=== PATIENT | female | born 1965 | race Caucasian/White ===

== ENCOUNTER 2018-10-14 09:57 | Emergency (ER) | payer OTHER ==
[2018-10-14 11:51] LABS: Urine Bacteria <20 /HPF (<20); Urine Culture Reflex Order NOT NEEDED
--- NOTE | 2018-10-14 12:30 | RAD REPORT ---
EXAM DESCRIPTION: US - Transvaginal Study Probe - 10/14/2018 11:51 am CLINICAL HISTORY: PAIN Pelvic pain. COMPARISON: No comparisons FINDINGS: The uterus is normal in size, shape and echotexture. Small posterior intramural fibroid me asuring 6 x 5 mm noted. The uterus measures 4.5 x 3.4 x 2.6 cm. The endometrial stripe measures 2 mm, normal. Neither ovary was visualized. No significant pelvic ascites. IMPRESSION: No acute or worrisome abnormality detected.
--- NOTE | 2018-10-14 12:35 | ER ---
Nurse's Notes [facility] Name: Bernie Garcia Age: 53 yrs Sex: Female : 1965 Arrival Date: 10/14/2018 Time: 10:01 Bed 25 Private MD: Diagnosis: Dysuria Presentation: 10/14 10:16 Presenting complaint: Patient states: unable to empty bladder completely, bladder sv pressure, is on abx for UTI since a week ago. Transition of care: patient was not received from another setting of care. Onset of symptoms was October 07, 2018. Care prior to arrival: None. 10:16 Method Of Arrival: Ambulatory sv 10:16 Acuity: TRUNG 3 sv 12:51 Risk Assessment: Do you want to hurt yourself or someone else? Patient reports no aj1 desire to harm self or others. Initial Sepsis Screen: Does the patient meet any 2 criteria? No. Patient's initial sepsis screen is negative. Does the patient have a suspected source of infection? No. Patient's initial sepsis screen is negative. Triage Assessment: 10:19 General: Appears in no apparent distress. comfortable, Behavior is calm, cooperative, sv appropriate for age. Pain: Complains of pain in groin Pain currently is 4 out of 10 on a pain scale. Neuro: Level of Consciousness is awake, alert, obeys commands, Oriented to person, place, time, situation, Moves all extremities. Full function Gait is steady. Respiratory: Respiratory effort is even, unlabored, Respiratory pattern is regular, symmetrical. : Reports pain urgency. Historical: - Allergies: 10:18 No Known Allergies; sv - Home Meds: 10:18 None [Active]; sv - PMHx: 10:18 None; sv - PSHx: 10:18 None; sv - Immunization history:: Flu vaccine is not up to date. - Social history:: Smoking status: Patient uses tobacco products, smokes one pack cigarettes per day. - Ebola Screening: : No symptoms or risks identified at this time. Screenin:56 Abuse screen: Denies threats or abuse. Denies injuries from another. Nutritional aj1 screening: No deficits noted. Tuberculosis screening: No symptoms or risk factors identified. 12:51 Fall Risk None identified. aj1 Assessment: 10:56 General: Appears in no apparent distress. uncomfortable, Behavior is calm, cooperative, aj1 appropriate for age. Pain: Complains of pain in suprapubic area Pain does not radiate. Pain currently is 4 out of 10 on a pain scale. Quality of pain is described as burning. Neuro: Level of Consciousness is awake, alert, obeys commands. Cardiovascular: Patient's skin is warm and dry. Respiratory: Airway is patent Respiratory effort is even, unlabored, Respiratory pattern is regular, symmetrical. GI: No signs and/or symptoms were reported involving the gastrointestinal system. : Reports burning with urination, urgency, Pressure in the suprapubic area. EENT: No signs and/or symptoms were reported regarding the EENT system. Derm: No signs and/or symptoms reported regarding the dermatologic system. Skin is pink, warm \T\ dry. normal. Musculoskeletal: No signs and/or symptoms reported regarding the musculoskeletal system. Circulation, motion, and sensation intact. 10:58 Reassessment: Bladder scan done, 0mL showing in the bladder. aj1 11:55 Reassessment: Patient appears in no apparent distress at this time. No changes from aj1 previously documented assessment. Patient and/or family updated on plan of care and expected duration. Pain level reassessed. Patient is alert, oriented x 3, equal unlabored respirations, skin warm/dry/pink. 12:51 Reassessment: Patient appears in no apparent distress at this time. No changes from aj1 previously documented assessment. Patient and/or family updated on plan of care and expected duration. Pain level reassessed. Patient is alert, oriented x 3, equal unlabored respirations, skin warm/dry/pink. Vital Signs: 10:18 BP 137 / 90; Pulse 76; Resp 16; Temp 98.4; Pulse Ox 97% ; Weight 54.43 kg; Height 5 ft. sv 2 in. (157.48 cm); Pain 4/10; 10:18 Body Mass Index 21.95 (54.43 kg, 157.48 cm) sv ED Course: 10:01 Patient arrived in ED. rg4 10:18 Triage completed. sv 10:19 Arm band placed on. sv 10:44 Irasema Dubose RN is Primary Nurse. aj1 10:46 Devan De MD is Attending Physician. gs 10:56 Patient has correct armband on for positive identification. Bed in low position. Call aj1 light in reach. Side rails up X 1. 10:56 No provider procedures requiring assistance completed. aj1 11:52 Transvaginal Study Probe In Process Unspecified. EDMS 11:53 Ultrasound completed. Patient tolerated well. aa4 12:33 Luke Giron MD is Referral Physician. gs 12:52 Patient did not have IV access during this emergency room visit. aj1 Administered Medications: No medications were administered Outcome: 12:34 Discharge ordered by MD. gs 12:52 Discharged to home ambulatory. aj1 12:52 Condition: good 12:52 Discharge instructions given to patient, family, Instructed on discharge instructions, follow up and referral plans. 12:52 Patient left the ED. aj1 Signatures: Dispatcher [employer] EDIrasema Michael RN RN aj1 Celsa Agrawal RN RN Jasmine Cabello aa4 Shy Rasmussen 4 Devan De MD MD Corrections: (The following items were deleted from the chart) 10:20 10:18 Pulse 76bpm; Resp 16bpm; Pulse Ox 97%; Temp 98.4F; 54.43 kg; Height 5 ft. 2 in.; sv BMI: 21.9; Pain 4/10; sv
--- NOTE | 2018-10-14 12:35 | EDPHYS ---
Physician Documentation [facility] Name: Bernie Garcia Age: 53 yrs Sex: Female : 1965 Arrival Date: 10/14/2018 Time: 10:01 Bed 25 Private MD: ED Physician Devan De HPI: 10/14 12:30 This 53 yrs old Female presents to ER via Ambulatory with complaints of Pain gs With Urination. 12:30 The patient presents with urinary symptoms, dysuria, frequency, urgency. Onset: The gs symptoms/episode began/occurred 4 week(s) ago. Modifying factors: The symptoms are alleviated by nothing, the symptoms are aggravated by urinating. Associated signs and symptoms: Pertinent positives: urinary frequency, Pertinent negatives: cramping, fever, hematuria. Severity of symptoms: At their worst the symptoms were moderate, in the emergency department the symptoms are unchanged. The patient has not experienced similar symptoms in the past. The patient has been recently seen by a physician: the patient's primary care provider, rx abx. Historical: - Allergies: 10:18 No Known Allergies; sv - Home Meds: 10:18 None [Active]; sv - PMHx: 10:18 None; sv - PSHx: 10:18 None; sv - Immunization history:: Flu vaccine is not up to date. - Social history:: Smoking status: Patient uses tobacco products, smokes one pack cigarettes per day. - Ebola Screening: : No symptoms or risks identified at this time. ROS: 12:30 All other systems are negative. gs Exam: 12:30 Head/Face: Normocephalic, atraumatic. Eyes: Pupils equal round and reactive to light, gs extra-ocular motions intact. Lids and lashes normal. Conjunctiva and sclera are non-icteric and not injected. Cornea within normal limits. Periorbital areas with no swelling, redness, or edema. ENT: Nares patent. No nasal discharge, no septal abnormalities noted. Tympanic membranes are normal and external auditory canals are clear. Oropharynx with no redness, swelling, or masses, exudates, or evidence of obstruction, uvula midline. Mucous membranes moist. Neck: Trachea midline, no thyromegaly or masses palpated, and no cervical lymphadenopathy. Supple, full range of motion without nuchal rigidity, or vertebral point tenderness. No Meningismus. Chest/axilla: Normal chest wall appearance and motion. Nontender with no deformity. No lesions are appreciated. Cardiovascular: Regular rate and rhythm with a normal S1 and S2. No gallops, murmurs, or rubs. Normal PMI, no JVD. No pulse deficits. Respiratory: Lungs have equal breath sounds bilaterally, clear to auscultation and percussion. No rales, rhonchi or wheezes noted. No increased work of breathing, no retractions or nasal flaring. Back: No spinal tenderness. No costovertebral tenderness. Full range of motion. Skin: Warm, dry with normal turgor. Normal color with no rashes, no lesions, and no evidence of cellulitis. MS/ Extremity: Pulses equal, no cyanosis. Neurovascular intact. Full, normal range of motion. Neuro: Awake and alert, GCS 15, oriented to person, place, time, and situation. Cranial nerves II-XII grossly intact. Motor strength 5/5 in all extremities. Sensory grossly intact. Cerebellar exam normal. Normal gait. 12:30 Constitutional: The patient appears alert, awake. 12:30 Abdomen/GI: Palpation: moderate abdominal tenderness, in the suprapubic area, rebound tenderness, is not appreciated. Vital Signs: 10:18 BP 137 / 90; Pulse 76; Resp 16; Temp 98.4; Pulse Ox 97% ; Weight 54.43 kg; Height 5 ft. sv 2 in. (157.48 cm); Pain 4/10; 10:18 Body Mass Index 21.95 (54.43 kg, 157.48 cm) sv MDM: 11:19 Patient medically screened. gs 12:30 Differential diagnosis: nonspecific abdominal pain, urinary tract infection, bladder gs dysfunction. Data reviewed: vital signs, nurses notes. Physician consultation: Luke Giron MD and will see patient in office, in 2-3 days. 12:35 Counseling: I had a detailed discussion with the patient and/or guardian regarding: the gs presence of at least one elevated blood pressure reading (>120/80) during this emergency department visit. Special discussion: I have referred the patient to see his PCP for further evaluation of high blood pressure. 10/14 11:06 Order name: Urine Dipstick--Ancillary (enter results) bd 10/14 11:06 Order name: Urine --Ancillary (enter results) bd 10/14 11:24 Order name: Urine Microscopic Only; Complete Time: 12:34 10/14 11:24 Order name: Urine Culture 10/14 11:52 Order name: Transvaginal Study Probe; Complete Time: 12:34 [facility] 10/14 10:52 Order name: Urine Dipstick-Ancillary (obtain specimen); Complete Time: 10:52 sv Administered Medications: No medications were administered Disposition: 10/14/18 12:34 Discharged to Home. Impression: Dysuria. - Condition is Stable. - Discharge Instructions: Dysuria, Urodynamic Testing, Managing Your Hypertension. - Medication Reconciliation Form, Thank You Letter, Antibiotic Education, Prescription Opioid Use form. - Follow up: Luke Giron MD; When: 1 - 2 days; Reason: Re-evaluation by your physician. Signatures: Dispatcher [employer] [facility] Irasema Dubose RN RN aj1 Celsa Agrawal RN RN sv Devan De MD MD Corrections: (The following items were deleted from the chart) 11:52 11:20 Pelvis Complete+US.RAD.BRZ ordered. [facility] 12:52 12:34 10/14/2018 12:34 Discharged to Home. Impression: Dysuria. Condition is Stable. aj1 Forms are Medication Reconciliation Form, Thank You Letter, Antibiotic Education, Prescription Opioid Use. Follow up: Luke Giron; When: 1 - 2 days; Reason: Re-evaluation by your physician. gs
[2018-10-14 18:35] LABS: Urine Blood 1+ (NEG); Urine Glucose NEGATIVE (NEG); Urine Protein NEGATIVE (NEG); Urine Specific Gravity 1.015 (1.005-1.030); Urine pH 5.5 (5.0-7.0)
== END 2018-10-14 12:52 | disposition home or self-care (01) ==
LOC: ER 09:57
DX: R30.0 Dysuria (principal); F17.210 Nicotine dependence, cigarettes, uncomplicated
CPT/HCPCS: 76830; 81003; 81015; 81025; 87086; 87088; 99283

== ENCOUNTER 2018-10-30 01:12 | Emergency (ER) | payer OTHER ==
[2018-10-30 02:06] LABS: Absolute Monocytes 0.5 K/uL (0.1-1.3); Absolute Neutrophil 2.6 K/uL (1.8-8.0); Basophils % 1.4 % (0-1.3); Eosinophils % 4.7 % (0-4.4); Hematocrit 42.1 % (36.0-45.0); Lymphocytes % 36.6 % (15.3-44.8); MCH 33.2 pg (27.0-35.0); MCV 96.4 fL (80-100); MPV 9.9 fL (7.6-11.3); Monocytes % 9.5 % (3.3-12.3); RBC Red Blood Cell Count 4.37 M/uL (3.86-4.86)
[2018-10-30] MEDS ORDERED: DIAZEPAM 10 MG/2 ML INJ SYRINGE ONE (02:06)
[2018-10-30] MEDS ORDERED: NA CHLORIDE 0.9% 1,000 ML ONE (02:06)
[2018-10-30 02:29] LABS: Barbiturates NEGATIVE (NEGATIVE); Benzodiazepines POSITIVE (NEGATIVE); Cocaine NEGATIVE (NEGATIVE); METHAMPHETAM NEGATIVE (NEGATIVE); Methadone NEGATIVE (NEGATIVE); Opiates NEGATIVE (NEGATIVE); Phencyclidine NEGATIVE (NEGATIVE); THC Cannibis NEGATIVE (NEGATIVE)
[2018-10-30 02:29] LABS: ALT/SGPT 17 U/L (12-78); AST/SGOT 12 U/L (15-37); Albumin 3.4 g/dL (3.4-5.0); Alkaline Phosphatase 96 U/L (45-117); BUN Blood Urea Nitrogen 12 mg/dL (7-18); Bicarbonate 26 mmol/L (21-32); Bilirubin Direct < 0.1 mg/dL (0-0.2); Bilirubin Total 0.1 mg/dL (0.2-1.0); Glucose Level 105 mg/dL (74-106); Potassium 4.1 mmol/L (3.5-5.1); Protein, Total 6.6 g/dL (6.4-8.2); Sodium Level 145 mmol/L (136-145)
[2018-10-30] MEDS ORDERED: ACETAMINOPHEN 500 MG TAB ONE (02:46)
[2018-10-30 02:53] LABS: Urine Blood 1+ (NEG); Urine Glucose NEGATIVE (NEG); Urine Protein 2+ (NEG); Urine Specific Gravity >1.030 (1.005-1.030); Urine pH 5.5 (5.0-7.0)
[2018-10-30 02:59] LABS: Urine Bacteria <20 /HPF (<20); Urine Culture Reflex Order NOT NEEDED; Urine RBC <5 /HPF (NONE SEEN)
--- NOTE | 2018-10-30 03:27 | EDPHYS ---
Physician Documentation [facility] Name: Bernie Garcia Age: 53 yrs Sex: Female : 1965 Arrival Date: 10/30/2018 Time: 01:13 Bed 4 Private MD: ED Physician Claudio Price HPI: 10/30 02:28 This 53 yrs old Female presents to ER via EMS with complaints of seizure. wa 02:28 The patient presents after having a single isolated seizure, that lasted 3 minute(s), wa the episode(s) was witnessed, by a spouse. Character of seizure(s): Loss of consciousness: the patient experienced loss of consciousness, Motor activity: generalized, Incontinence: none, Apnea: the patient did not experience apnea, Circulation: the patient did not experience evidence of pulse disturbance. Seizure onset: just prior to arrival. Context: the seizure(s) was witnessed, by family, occurred at home, occurred while the patient was at rest, Contributing factors: takes 10 mg of valium twice a day. states run out of her medication 5 days ago and forgot to refill. h/o SZ d/o since childhood. has not seen a neurologist in several years. valium is prescribed by her PCP. 02:32 Seizure Hx: Last seizure: The patient's last seizure was approximately 3 month(s) ago. wa Associated injury: Other: L hip pain. EMS care: none. Current symptoms: L hip pain. generalized body soreness. The patient has not experienced similar symptoms in the past. The patient has not recently seen a physician. 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 - Social history:: Smoking status: Patient uses tobacco products, smokes one pack cigarettes per day. Patient uses alcohol, occasionally. Patient/guardian denies using street drugs. - Ebola Screening: : No symptoms or risks identified at this time. ROS: 02:33 Constitutional: Negative for fever, chills, and weight loss, Eyes: Negative for injury, wa pain, redness, and discharge, ENT: Negative for injury, pain, and discharge, Neck: Negative for injury, pain, and swelling, Cardiovascular: Negative for chest pain, palpitations, and edema, Respiratory: Negative for shortness of breath, cough, wheezing, and pleuritic chest pain, Abdomen/GI: Negative for abdominal pain, nausea, vomiting, diarrhea, and constipation, Back: Negative for injury and pain, : Negative for injury, bleeding, discharge, and swelling, Skin: Negative for injury, rash, and discoloration, Neuro: Negative for headache, weakness, numbness, tingling, and seizure, Psych: Negative for depression, anxiety, suicide ideation, homicidal ideation, and hallucinations. 02:33 MS/extremity: Positive for pain, tenderness, of the L hip. 02:33 All other systems are negative. Exam: 02:34 Constitutional: This is a well developed, well nourished patient who is awake, alert, wa and in no acute distress. Head/Face: Normocephalic, atraumatic. Eyes: Pupils equal round and reactive to light, extra-ocular motions intact. Lids and lashes normal. Conjunctiva and sclera are non-icteric and not injected. Cornea within normal limits. Periorbital areas with no swelling, redness, or edema. ENT: Nares patent. No nasal discharge, no septal abnormalities noted. Tympanic membranes are normal and external auditory canals are clear. Oropharynx with no redness, swelling, or masses, exudates, or evidence of obstruction, uvula midline. Mucous membranes moist. Neck: Trachea midline, no thyromegaly or masses palpated, and no cervical lymphadenopathy. Supple, full range of motion without nuchal rigidity, or vertebral point tenderness. No Meningismus. Chest/axilla: Normal chest wall appearance and motion. Nontender with no deformity. No lesions are appreciated. Cardiovascular: Regular rate and rhythm with a normal S1 and S2. No gallops, murmurs, or rubs. Normal PMI, no JVD. No pulse deficits. Respiratory: Lungs have equal breath sounds bilaterally, clear to auscultation and percussion. No rales, rhonchi or wheezes noted. No increased work of breathing, no retractions or nasal flaring. Abdomen/GI: Soft, non-tender, with normal bowel sounds. No distension or tympany. No guarding or rebound. No evidence of tenderness throughout. Back: No spinal tenderness. No costovertebral tenderness. Full range of motion. Skin: Warm, dry with normal turgor. Normal color with no rashes, no lesions, and no evidence of cellulitis. Neuro: Awake and alert, GCS 15, oriented to person, place, time, and situation. Cranial nerves II-XII grossly intact. Motor strength 5/5 in all extremities. Sensory grossly intact. Cerebellar exam normal. Normal gait. Psych: Awake, alert, with orientation to person, place and time. Behavior, mood, and affect are within normal limits. 02:34 Musculoskeletal/extremity: Extremities: grossly normal except: noted in the left hip: pain, tenderness. Vital Signs: 01:25 BP 134 / 79; Pulse 108; Resp 28 S; Temp 98.2(TE); Pulse Ox 97% on R/A; Weight 54.43 kg bb (R); Height 5 ft. 2 in. (157.48 cm) (R); Pain 7/10; 02:25 BP 124 / 78; Pulse 93; Resp 14 S; Pulse Ox 96% on R/A; bb 03:27 BP 127 / 78; Pulse 90; Resp 16; Temp 98.8(O); Pulse Ox 97% on R/A; bb 01:25 Body Mass Index 21.95 (54.43 kg, 157.48 cm) MDM: 01:24 Patient medically screened. md 02:35 Differential diagnosis: benzo w/drawal sz? will work up and reassess. . Data reviewed: md vital signs, nurses notes. 03:15 Test interpretation: by ED physician or midlevel provider: labs noted within nml md limits. ED course: valium given in in ED via IV. pt on 10 mg BID valium. will script for a bridge and have her follow up closely with neurology and her PMD. 10/30 01:45 Order name: Acetaminophen; Complete Time: 02:35 md 10/30 01:45 Order name: Basic Metabolic Panel; Complete Time: 02:36 md 10/30 01:45 Order name: CBC with Diff; Complete Time: 02:36 md 10/30 01:45 Order name: ETOH Level; Complete Time: 02:36 md 10/30 01:45 Order name: Hepatic Function; Complete Time: 02:36 md 10/30 01:45 Order name: Salicylate; Complete Time: 02:36 md 10/30 01:45 Order name: Urine Drug Screen; Complete Time: 02:36 md 10/30 01:45 Order name: IV Saline Lock; Complete Time: 02:04 md 10/30 01:45 Order name: Urine Microscopic Only md 10/30 02:14 Order name: Urine Dipstick--Ancillary (enter results) ms 10/30 02:32 Order name: Hip Left 2 View XRAY md 10/30 01:45 Order name: Labs collected and sent; Complete Time: 02:04 md 10/30 01:45 Order name: Urine Dipstick-Ancillary (obtain specimen); Complete Time: 02:04 md Administered Medications: 02:03 Drug: NS 0.9% 1000 ml Route: IV; Rate: 1 bolus; Site: left antecubital; bb 03:00 Follow up: IV Status: Completed infusion; IV Intake: 1000ml bb 02:03 Drug: Valium 2 mg Route: IVP; Site: left antecubital; bb 02:36 Follow up: Response: Marked relief of symptoms bb 02:41 Drug: Tylenol 1000 mg Route: PO; bb 03:28 Follow up: Response: No adverse reaction bb Disposition: 10/30/18 03:27 Discharged to Home. Impression: Seizure . - Condition is Stable. - Discharge Instructions: Seizure, Adult, [id number]. - Prescriptions for Valium 10 mg Oral Tablet - take 1 tablet by ORAL route 2 times per day As needed; 10 tablet. - Medication Reconciliation Form, Thank You Letter, Antibiotic Education, Prescription Opioid Use form. - Follow up: Edmund Day MD; When: 1 - 2 days; Reason: Recheck today's complaints. - Problem is new. - Symptoms have improved. - Notes: do not quit valium abruptly as you could have a seizure as a result. follow up with your doctor and the neurologist within 2 days for further evaluation. you may need to be weaned of valium and started on proper nursing home seizure medication Signatures: Dispatcher [employer] EDTish Schaffer RN RN bb Appiah, William, MD MD wa Corrections: (The following items were deleted from the chart) 03:43 03:27 10/30/2018 03:27 Discharged to Home. Impression: Seizure . Condition is Stable. bb Forms are Medication Reconciliation Form, Thank You Letter, Antibiotic Education, Prescription Opioid Use. Follow up: Edmund Day; When: 1 - 2 days; Reason: Recheck today's complaints. Problem is new. Symptoms have improved. wa
--- NOTE | 2018-10-30 03:27 | ER ---
Nurse's Notes [facility] Name: Bernie Garcia Age: 53 yrs Sex: Female : 1965 Arrival Date: 10/30/2018 Time: 01:13 Bed 4 Private MD: Diagnosis: Seizure Presentation: 10/30 01:23 Presenting complaint: EMS states: they were toned out for report of pt having a bb seizure, pt has hx of seizures and has not been taking her seizure medication for several weeks. Transition of care: patient was not received from another setting of care. Onset of symptoms was October 30, 2018. Risk Assessment: Do you want to hurt yourself or someone else? Patient reports no desire to harm self or others. Initial Sepsis Screen: Does the patient meet any 2 criteria? No. Patient's initial sepsis screen is negative. Does the patient have a suspected source of infection? No. Patient's initial sepsis screen is negative. Care prior to arrival: IV initiated. 18 GA, in the left antecubital area. 01:23 Method Of Arrival: EMS: [facility] bb 01:23 Acuity: TRUNG 3 bb Triage Assessment: 01:25 General: Appears in no apparent distress. uncomfortable, Behavior is cooperative, bb anxious. Pain: Complains of pain in left groin Pain currently is 7 out of 10 on a pain scale. Neuro: Level of Consciousness is awake, alert, obeys commands, Oriented to person, place, time, situation. Cardiovascular: Heart tones S1 S2 present Capillary refill < 3 seconds Patient's skin is warm and dry. Pulses are all present. Edema is absent. Respiratory: Respiratory effort is even, unlabored, Breath sounds are clear bilaterally. GI: No deficits noted. No signs and/or symptoms were reported involving the gastrointestinal system. Derm: Skin is pink, warm \T\ dry. Musculoskeletal: Circulation, motion, and sensation intact. INVESTMENT UNDERWRITER: 01:25 LMP N/A - Post-menopause bb Historical: - Allergies: :25 No Known Allergies; bb - Home Meds: :25 Unable to obtain [Active]; bb - PMHx: 01:25 Seizures; bb - PSHx: 01:25 None; bb - Immunization history:: Adult Immunizations unknown. - Social history:: Smoking status: Patient uses tobacco products, smokes one pack cigarettes per day. Patient uses alcohol, occasionally. Patient/guardian denies using street drugs. - Ebola Screening: : No symptoms or risks identified at this time. Screenin:28 Abuse screen: Denies threats or abuse. Nutritional screening: No deficits noted. bb Tuberculosis screening: No symptoms or risk factors identified. Fall Risk Fall in past 12 months (25 points). Secondary diagnosis (15 points) seizures, IV access (20 points). Ambulatory Aid- None/Bed Rest/Nurse Assist (0 pts). Mental Status- Oriented to own ability (0 pts). Total Beauchamp Fall Scale indicates High Risk Score (45 or more points). Fall prevention measures have been instituted. Family Present and informed to notify staff if the need to leave the bedside As available patient and family educated on Fall Prevention Program and Strategies. Assessment: :28 Reassessment: see triage assessment. bb 02:24 Reassessment: Patient and/or family updated on plan of care and expected duration. Pain bb level reassessed. Patient is alert, oriented x 3, equal unlabored respirations, skin warm/dry/pink. pt states she is feeling better after med administration, resting quietly, IV site intact, patent with fluids infusing spouse at bedside. 03:26 Reassessment: pt A\T\O x 4, resting quietly, resp unlabored, IV site intact, spouse at bb bedside. 03:42 Reassessment: pt verbalized understanding of and agrees to plan of care discharge bb instructions given pt ambulated with steady gait to exit accompanied by spouse. Vital Signs: 01:25 BP 134 / 79; Pulse 108; Resp 28 S; Temp 98.2(TE); Pulse Ox 97% on R/A; Weight 54.43 kg bb (R); Height 5 ft. 2 in. (157.48 cm) (R); Pain 7/10; 02:25 BP 124 / 78; Pulse 93; Resp 14 S; Pulse Ox 96% on R/A; bb 03:27 BP 127 / 78; Pulse 90; Resp 16; Temp 98.8(O); Pulse Ox 97% on R/A; bb 01:25 Body Mass Index 21.95 (54.43 kg, 157.48 cm) bb ED Course: 01:13 Patient arrived in ED. al2 01:22 Cerda, Tish, RN is Primary Nurse. bb 01:24 Albert, Claudio, MD is Attending Physician. wa 01:25 Triage completed. bb 01:25 Arm band placed on Patient placed in an exam room, on a stretcher, on athletic monitor, bb on pulse oximetry. Family accompanied patient. 01:28 Patient has correct armband on for positive identification. Bed in low position. Call bb light in reach. Side rails up X2. Seizure precautions initiated. cardiac monitor technician on. Pulse ox on. NIBP on. Warm blanket given. 01:28 Maintain EMS IV. Dressing intact. Gauge \T\ site: 18 g LAC. bb 01:50 Initial lab(s) drawn, by me, sent to lab. Urine collected: clean catch specimen. bb 02:57 X-ray completed. Portable x-ray completed in exam room. Patient tolerated procedure kw well. 02:58 Hip Left 2 View XRAY In Process Unspecified. EDSC 03:26 Edmund Day MD is Referral Physician. wa 03:42 No provider procedures requiring assistance completed. IV discontinued, intact, bb bleeding controlled, No redness/swelling at site. Pressure dressing applied. Administered Medications: 02:03 Drug: NS 0.9% 1000 ml Route: IV; Rate: 1 bolus; Site: left antecubital; bb 03:00 Follow up: IV Status: Completed infusion; IV Intake: 1000ml bb 02:03 Drug: Valium 2 mg Route: IVP; Site: left antecubital; bb 02:36 Follow up: Response: Marked relief of symptoms bb 02:41 Drug: Tylenol 1000 mg Route: PO; bb 03:28 Follow up: Response: No adverse reaction bb Intake: 03:00 IV: 1000ml; Total: 1000ml. bb Outcome: 03:27 Discharge ordered by . wa 03:43 Discharged to home ambulatory, with family. bb 03:43 Condition: stable 03:43 Discharge instructions given to patient, family, Instructed on discharge instructions, follow up and referral plans. medication usage, Demonstrated understanding of instructions, follow-up care, medications, Prescriptions given X 1. 03:43 Patient left the ED. bb Signatures: Dispatcher [employer] EDSC Tish Cerda RN RN bb Whitley, Kimberlee kw Appiah, William, MD MD wa Love, Angelica al2 Corrections: (The following items were deleted from the chart) 03:41 03:27 BP 127 / 78; Pulse 90bpm; Resp 16bpm; Pulse Ox 97% RA; bb bb
--- NOTE | 2018-10-30 07:14 | RAD REPORT ---
EXAM DESCRIPTION: RAD - Hip Left 2 View - 10/30/2018 3:01 am CLINICAL HISTORY: Seizure, fall, left hip pain A preliminary report was provided at the time of the study and reviewed prior to final report. COMPARISON: None. FINDINGS: AP and frogleg views of the left hip were obtained. There is no fracture or dislocation. N o AVN or focal femoral head abnormality. Minimal SI joint degenerative change seen. No acute or destr uctive bony process seen. No soft tissue abnormality. IMPRESSION: Negative left hip examination for acute or significant findings.
== END 2018-10-30 03:43 | disposition home or self-care (01) ==
LOC: ER 01:12
DX: M25.552 Pain in left hip (principal); R56.9 Unspecified convulsions; F17.210 Nicotine dependence, cigarettes, uncomplicated
CPT/HCPCS: 36415; 80048; 80076; 80307; 80320; 80329; 81003; 81015; 85025; 96361; 96374; 99284; J3360; J7030

== ENCOUNTER 2021-01-18 07:56 | Day surgery (SDC) | payer BC ==
[2021-01-18] MEDS ORDERED: propofoL 200 MG/20 ML VIAL IV ONE ×2 (10:21→12:10)
[2021-01-18] MEDS ORDERED: FENTANYL CITR 100 MCG/2 ML ONE ×2 (10:21→12:39)
[2021-01-18] MEDS ORDERED: MIDAZOLAM HCL 2 MG/2 ML INJ ONE (10:22)
[2021-01-18] MEDS ORDERED: LIDOCAINE 1% MPF 5 ML VIAL ONE (10:22)
[2021-01-18] MEDS ORDERED: Ringers Lactate 1,000 ML IV ONE ×2 (10:28→13:28)
[2021-01-18] MEDS ORDERED: NA CHLORIDE 0.9% 1,000 ML ONE (11:44)
[2021-01-18] MEDS: LIDOCAINE 1% W/EPI 1:100,000 MDV 20 ML VIAL ONE ×2 (11:45→11:51)
[2021-01-18] MEDS ORDERED: KETOROLAC 30 MG/ML INJ ONE (12:22)
[2021-01-18] MEDS ORDERED: CEFAZOLIN SODIUM 1 GM/VIAL ONE (12:24)
[2021-01-18] MEDS ORDERED: ROCURONIUM 50 MG/5 ML VIAL IV ONE (12:28)
[2021-01-18] MEDS ORDERED: dexAMETHasone 10 MG/ML VIAL ONE (12:41)
[2021-01-18] MEDS ORDERED: GLYCOPYRROLATE 0.2 MG/ML SYR ONE (13:17)
[2021-01-18] MEDS ORDERED: NEOSTIGMINE 1 MG/ML -5 ML ONE (13:20)
[2021-01-18] MEDS ORDERED: HYDROCODONE/APAP 7.5/325 MG TAB ONE (14:28)
[2021-01-18 15:15] VITALS: BP 102/76; TEMP 96.7; O2SAT 97
--- NOTE | 2021-01-18 19:07 | OP ---
Date of Procedure: 01/18/2021 Surgeon: Tricia Sethi MD Preoperative Diagnosis: Postmenopausal bleeding on hormone therapy. Postoperative Diagnosis: Postmenopausal bleeding on hormone therapy and uterine perforation. Procedures Performed: Diagnostic hysteroscopy, dilatation and curettage, diagnostic laparoscopy. Anesthesia: General endotracheal. Specimens: Endometrial curettings, very scant. Complications: Uterine perforation. No drains. Condition: The patient's condition stable. Findings: Uterine and cervix small due to a scar to the external os due to her colon biopsy. Then, she has history of Asherman syndrome. Then, she has a history of ablation due to heavy bleeding 15 y ears ago and she had a thick uterine scar and Asherman syndrome. The right fundal wall was visualize d. There was a noted uterine perforation in this area. Once the biopsy was performed, then hysteros cope was placed into the uterine cavity to confirm I was able to see the tissue consistent with fat a nd so at this time, it was decided that she must have also diagnostic laparoscopy to rule out any bow el perforation or bowel trauma due to the curettage just prior to this. On diagnostic laparoscopy, no evidence of any bowel perforation. The entire small bowel from the ile ocecal junction all the way up to the jejunum was well visualized. All this was the small bowel that was overlying the uterus when I entered the abdominal cavity. Then the sigmoid colon from below the left lower quadrant all the way to the rectum was inspected closely. No evidence of any trauma here . The left tube possibly has a small clot on it. The ovaries on both sides unremarkable. Both tube s unremarkable. Evidence of tubal ligation with Falope rings. No evidence of any other trauma. The perforated area was hemostatic. Indications: The patient is a 55-year-old who presented with postmenopausal bleeding. She had recen t hormone therapy that was done by outside provider. Once she developed postmenopausal bleeding, she stopped the hormones and presented, did a transvaginal ultrasound. Her endometrial stripe appeared to be thickened and we discussed about the need for ruling out endometrial adenocarcinoma or atypia b efore we either can resume hormone therapy or just observe it with nonhormonal therapy options for he r severe menopausal symptoms. The patient was consented for diagnostic hysteroscopy, D and C. Risks including bleeding, infection, perforation of the uterus were all reviewed with the patient. Procedure In Detail: The patient was consented. She was reconsented in the preop area and taken lisa shashi to the OR, placed in supine fashion on the operating table. MAC was given. Placed in a dorsal lit hotomy position. Speculum was placed to expose the cervix. Prep x3 with Betadine was done. Anterio r lip was injected with 1% lidocaine mixed with 1:100,000 epinephrine. Since the lip was small, a te naculum was used in the 4 and 8 o'clock position of cervicovaginal junction and another 5 cc was give n. A SlimLine hysteroscope was introduced through the cervical canal. Also unable to pass it. Then wit h the help of a hemostat, the os was dilated, the external opening. Then, the scope was able to be f itted in and under direct visualization, this cavity was entered. Once the cavity was entered visual ized just the right lateral aspect. No evidence of any masses or abnormal endometrium. The lining w as thickened like adhesions. Then, the scope was removed and dilated to 18-[place] and 0 curette was used to enter the uterine cavity and curettage was performed. As soon as this was done, there was a suspicion of a uterine perforation in this area probably with curette going through, so scope was vadim ntroduced, and once I placed it here, I could see the perforated area and adipose tissue right past i t. So without further advancing the camera, the camera was pulled out. There was a small amount of soft tissue that was obtained with the curette and there was a concern that there could be some bowel trauma that is unrecognized at this time. So, all the vaginal instruments were removed. Instrument , needle, and sponge counts were correct. I walked out scrubbing out to the patient's . We discussed about her findings and my recommen dation to go with a diagnostic laparoscopy. Once he understood the concern, he consented for this pr ocedure and then I went back to the OR. Abdomen, vulva, vagina and perineum prepped and draped in a sterile fashion. Vicente was placed to drain the bladder and sponge on a stick placed for retraction o f the bowel. 0.5% Marcaine injected at the infraumbilical area in the suprapubic and left lower quad rants and all skin incisions were made with a 15 blade 10 mm at the infraumbilical side and fascia in cised and peritoneum incised directly as well, tagged with 0 Vicryl sutures on both sides and the Has son introduced and scope introduced after adequate insufflation. Before the patient was placed in Tr endelenburg, there was minimal amount of blood. Then, she was placed in Trendelenburg and systematic ally 5 suprapubic and left lower quadrant ports were placed under direct vision and then entire bowel from the ileocecal junction was ran and then there was no evidence of any small bowel trauma. The l arge bowel from the sigmoid colon on the left side, this was inspected closely. No evidence of any p erforation or trauma or even superficial laceration. The right tube had evidence of a small clot on it possibly this is the area that got in the curette. Both ovaries were unremarkable. Then, once all the trauma was ruled out, all the trocars were remov ed under direct vision. Injection at the skin and fascia was done with a 0.5% Marcaine at all 3 side s. Gas was desufflated. Vicente was removed. Sponge on a stick in the vagina was removed and umbilic al trocar was removed after gas was desufflated. Closed the fascia with the tagged 0 Vicryl sutures tied to each other and simple 4-0 Vicryl sutures for skin closure. Instrument, needle, and sponge co unts were correct at the end of case. The patient tolerated the procedure well. Estimated Blood Loss: Minimal. I talked to the about the findings and conservative management and observation, 1 week follow up. The patient understood this. [place] prescription was done. Regular diet and she will be dischar ged home today. [email or web address]/ROSLYN Voice ID: [id number] Report ID: [id number]
== END 2021-01-18 15:00 | disposition home or self-care (01) ==
LOC: OR 07:56
PROVIDERS: ATTEND Obstetrics & Gynecology
PROC: 0WJJ4ZZ Inspection of Pelvic Cavity, Percutaneous Endoscopic Approach (ICD-10-PCS; 2021-01-18)
PROC: 0UDB7ZX Extraction of Endometrium, Via Natural or Artificial Opening, Diagnostic (ICD-10-PCS; principal; 2021-01-18 10:30)
PROC: 0UJD8ZZ Inspection of Uterus and Cervix, Via Natural or Artificial Opening Endoscopic (ICD-10-PCS; 2021-01-18 10:30)
DX: N95.0 Postmenopausal bleeding (principal); N95.1 Menopausal and female climacteric states; R03.0 Elevated blood-pressure reading, without diagnosis of hypertension; N88.2 Stricture and stenosis of cervix uteri; Z20.822 Contact with and (suspected) exposure to COVID-19
CPT/HCPCS: 81025; 88305; 58558; 49320; U0002; J2704 ×2; J2250; J3010 ×2; J1100; J2710; J7120 ×2; J7030; J0690